=== PATIENT | female | born 1925 | race Caucasian/White ===

== ENCOUNTER 2016-08-30 16:11 | Outpatient (CLI) | payer MEDICARE, BC | END 2016-08-30 23:59 | disposition critical access hospital (66) | DX: S81.812A Laceration without foreign body, left lower leg, initial encounter (principal); S81.811A Laceration without foreign body, right lower leg, initial encounter; W01.0XXA Fall on same level from slipping, tripping and stumbling without subsequent striking against object, initial encounter; Y92.009 Unspecified place in unspecified non-institutional (private) residence as the place of occurrence of the external cause | CPT/HCPCS: A0425; A0429 ==

== ENCOUNTER 2016-08-30 16:50 | Emergency (ER) | payer MEDICARE, BC ==
[2016-08-30] MEDS ORDERED: LIDOCAINE 1%-EPI 1:100000 20 ML MDV SUBQ STA (17:11)
[2016-08-30] MEDS ORDERED: TETANUS/DIPHTHERIA/PERTUSSIS 0.5 ML SYRINGE IM ONE ×2 (17:11→17:17)
[2016-08-30] MEDS ORDERED: LIDOCAINE 1%-EPI 1:100000 20 ML MDV ONE (17:17)
== END 2016-08-30 20:07 | disposition home or self-care (01) ==
DX: S81.812A Laceration without foreign body, left lower leg, initial encounter (principal); S81.811A Laceration without foreign body, right lower leg, initial encounter; W01.198A Fall on same level from slipping, tripping and stumbling with subsequent striking against other object, initial encounter; Y92.019 Unspecified place in single-family (private) house as the place of occurrence of the external cause; Z23 Encounter for immunization; I11.0 Hypertensive heart disease with heart failure; I50.9 Heart failure, unspecified; I25.10 Atherosclerotic heart disease of native coronary artery without angina pectoris; Z95.1 Presence of aortocoronary bypass graft; I48.91 Unspecified atrial fibrillation; Z79.01 Long term (current) use of anticoagulants; E11.9 Type 2 diabetes mellitus without complications; Z79.84 Long term (current) use of oral hypoglycemic drugs; E03.9 Hypothyroidism, unspecified; Z95.0 Presence of cardiac pacemaker; Z79.82 Long term (current) use of aspirin

== ENCOUNTER 2016-09-13 07:30 | Outpatient (CLI) | payer MEDICARE, BC | END 2016-09-13 07:31 | DX: K52.9 Noninfective gastroenteritis and colitis, unspecified (principal) ==

== ENCOUNTER 2016-10-05 11:26 | Outpatient (CLI) | payer MEDICARE, BC ==
[2016-10-05 19:19] LABS: BASOPHILS % (AUTO) 0.7 %; EOSINOPHILS # (AUTO) 0.1 10^3/uL (0.0-0.7); HCT - HEMATOCRIT 26.5 % (37.0-47.0); HGB - HEMOGLOBIN 8.4 g/dL (12.0-16.0); LYMPHOCYTES # (AUTO) 0.8 10^3/uL (1.5-3.5); LYMPHOCYTES % (AUTO) 18.3 %; MEAN CORPUSCULAR HEMOGLOBIN 29.5 pg (27.0-31.0); MEAN CORPUSCULAR HGB CONC 31.5 g/dL (32.0-36.0); MEAN CORPUSCULAR VOLUME 93.6 fL (81.0-99.0); MEAN PLATELET VOLUME 8.9 fL (7.9-10.8); MONOCYTES # (AUTO) 0.3 10^3/uL (0.0-1.0); MONOCYTES % (AUTO) 7.1 %; NEUTROPHILS # (AUTO) 3.1 10^3/uL (1.5-6.6); NEUTROPHILS % (AUTO) 71.9 %; NUCLEATED RED BLOOD CELLS AUTO 0.1 /100WBC; RED BLOOD COUNT 2.83 10^6/uL (4.20-5.40); UNCORRECTED WHITE BLOOD COUNT 4.4 x10^3/uL; WHITE BLOOD COUNT 4.4 x10^3/uL (4.8-10.8)
[2016-10-05 19:31] LABS: CALCIUM 8.7 mg/dL (8.5-10.3); CREATININE 1.8 mg/dL (0.4-1.0); POTASSIUM 4.3 mmol/L (3.5-5.0); URIC ACID 12.5 mg/dL (2.6-7.2)
== END 2016-10-05 11:27 | disposition home or self-care (01) ==
LOC: LAB.WCP 11:26
PROVIDERS: ATTEND Family Medicine
DX: M10.00 Idiopathic gout, unspecified site (principal); L03.011 Cellulitis of right finger
CPT/HCPCS: 36415; 80048; 84550; 85025

== ENCOUNTER 2016-10-22 15:45 | Outpatient (CLI) | payer MEDICARE, BC | END 2016-10-22 15:46 | disposition home or self-care (01) | LOC: LAB.R 15:45 | PROVIDERS: ATTEND Physician Assistant Medical | DX: S81.819D Laceration without foreign body, unspecified lower leg, subsequent encounter (principal) | CPT/HCPCS: 87070; 87077; 87205 ==

== ENCOUNTER 2016-10-30 06:12 | Inpatient (IN) | payer MEDICARE, BC ==
[2016-10-30] MEDS ORDERED: LACTATED RINGERS 1,000 ML IV ONE ×2 (06:30→08:48)
[2016-10-30 07:08] LABS: BASOPHILS % (AUTO) 0.5 %; EOSINOPHILS # (AUTO) 0.1 10^3/uL (0.0-0.7); EOSINOPHILS % (AUTO) 1.1 %; HGB - HEMOGLOBIN 8.5 g/dL (12.0-16.0); LYMPHOCYTES # (AUTO) 0.9 10^3/uL (1.5-3.5); LYMPHOCYTES % (AUTO) 15.3 %; MEAN CORPUSCULAR HEMOGLOBIN 29.5 pg (27.0-31.0); MEAN CORPUSCULAR HGB CONC 32.6 g/dL (32.0-36.0); MEAN CORPUSCULAR VOLUME 90.5 fL (81.0-99.0); MEAN PLATELET VOLUME 8.3 fL (7.9-10.8); MONOCYTES # (AUTO) 0.4 10^3/uL (0.0-1.0); MONOCYTES % (AUTO) 6.7 %; NEUTROPHILS # (AUTO) 4.7 10^3/uL (1.5-6.6); NEUTROPHILS % (AUTO) 76.4 %; RED BLOOD COUNT 2.88 10^6/uL (4.20-5.40); RED CELL DISTRIBUTION WIDTH 17.2 % (12.0-15.0); UNCORRECTED WHITE BLOOD COUNT 6.1 x10^3/uL; WHITE BLOOD COUNT 6.1 x10^3/uL (4.8-10.8)
[2016-10-30 07:15] LABS: INR 2.5 (0.8-1.2); PT - PROTHROMBIN TIME 28.8 secs (9.9-12.6)
[2016-10-30 07:23] LABS: PARTIAL THROMBOPLASTIN TIME 37.4 secs (24.9-33.3)
[2016-10-30] MEDS ORDERED: VANCOMYCIN 1 GM VIAL ONE (07:25)
[2016-10-30] MEDS ORDERED: SODIUM CHLORIDE 0.9% 250 ML IV ONE (07:25)
[2016-10-30] MEDS ORDERED: fentaNYL 100 MCG/2 ML VIAL IVP ONE (08:00)
[2016-10-30] MEDS ORDERED: MIDAZOLAM 2 MG/2 ML VIAL IVP ONE (08:00)
[2016-10-30] MEDS ORDERED: PROPOFOL 200 MG/20 ML VIAL IVP ONE (08:00)
[2016-10-30] MEDS ORDERED: GLYCOPYRROLATE 1 MG/5 ML VIAL IVP ONE (08:00)
[2016-10-30] MEDS ORDERED: KETAMINE 500 MG/10 ML VIAL IVP ONE (08:00)
[2016-10-30] MEDS ORDERED: LIDOCAINE MPF 1%-EPI 1:200000 30 ML VIAL SUBQ ONE (08:38)
[2016-10-30] MEDS ORDERED: BUPIVACAINE 0.25% PF 30 ML VIAL SUBQ ONE (08:38)
[2016-10-30] MEDS ORDERED: SODIUM CHLORIDE FLUSH 0.9% 10 ML SYRINGE IVP PRN (08:48)
[2016-10-30] MEDS ORDERED: IBUPROFEN 400 MG TABLET PO PRN (08:48)
[2016-10-30] MEDS ORDERED: ASPIRIN EC 81 MG TABLET PO SCH ×2 (09:00→11:58)
[2016-10-30] MEDS ORDERED: BECLOMETHASONE DIPROPIONATE IH SCH (09:00)
[2016-10-30] MEDS ORDERED: SODIUM CHLORIDE 0.9% IV SCH (09:00)
[2016-10-30] MEDS ORDERED: FAMOTIDINE 20 MG TABLET PO SCH ×2 (09:00→12:00)
[2016-10-30] MEDS ORDERED: IRON POLYSACCHARIDE COMPLEX PO SCH (09:00)
[2016-10-30] MEDS ORDERED: VANCOMYCIN PER PHARMACY IV SCH (09:00)
[2016-10-30] MEDS ORDERED: fentaNYL 100 MCG/2 ML VIAL ONE (09:08)
[2016-10-30 09:48] LABS: HEMOGLOBIN A1C 0.34 g/dL
[2016-10-30] MEDS: POTASSIUM CHLORIDE 10 MEQ CAPSULE PO SCH (11:42)
[2016-10-30] MEDS: VANCOMYCIN INJ 1 GM in SODIUM CHLORIDE 0.9% 250 ML IV SCH (11:42)
[2016-10-30] MEDS: FUROSEMIDE 40 MG TABLET PO SCH ×2 (11:43→20:53)
[2016-10-30] MEDS: LEVOTHYROXINE 100 MCG TABLET PO SCH (11:44)
--- NOTE | 2016-10-30 12:01 | OPERATIVE REPORT ---
DATE OF SURGERY: 10/30/2016 00:00:00 PREOPERATIVE DIAGNOSIS: Bilateral traumatic nonhealing wounds. POSTOPERATIVE DIAGNOSIS: Bilateral traumatic nonhealing wounds. NAME OF PROCEDURE: Debridement of bilateral lower extremity wounds. SURGEON: Savannah Rosales MD ANESTHESIA: Alma Boss CRNA INDICATION FOR PROCEDURE: This is an 89-year-old female who fell, striking both of her legs, approximately 2 months ago. She was seen in the emergency department and the wounds were closed; however, they broke down and opened and have been nonhealing since. She has significant lower extremity edema contributing to the problem. When I saw her in the office, she also had a component of cellulitis and has been treated with antibiotics. FINDINGS: After obtaining informed consent from the patient, she was brought into the operating room and positioned on the operating table in the supine position, taking note of pressure points. Her lower extremities were elevated. She was then prepped and draped in the usual sterile fashion, 1 gram of vancomycin was administered. A time-out was then taken according to protocol. Local anesthetic was infiltrated to the bilateral wounds. The left extremity wound is located on the lateral aspect of her lower extremity and is noted to be approximately 5 cm in length, 4 cm in width, and 2 cm in depth. The fibrinous tissue overlying the wound bed and the necrotic tissue were debrided with a combination of sharp debridement with a #15 blade and blunt debridement with the curettage until healthy tissue was seen. Upon completion of debridement the wound was noted to be much deeper ( 4cm)involving the musculature of the leg. Due to her elevated INR secondary to coumadin Vac placement was not performed at this time, however, she will need utilization of the vac dressing post operatively and will require monitoring for persistent bleeding. The wound was then pulse irrigated with saline. Compression was then applied to obtain hemostasis. Attention was then turned to the right lower extremity. This wound was located on the medial aspect of her lower extremity and is approximately 4 cm in length , 2 cm in width, and 1 cm in depth. This wound was also debrided with a combination of sharp debridement with a #15 blade and blunt debridement with the curettage. Cultures of both wounds were obtained. This wound was also irrigated with the pulse lavage system and inspected for bleeding, and this was controlled with a combination of pressure and Bovie cautery. After adequate hemostasis was obtained, the wounds were dressed with 4 x 4's soaked in Betadine, followed by dry 4 x 4's, followed by a Kerlix wrapped from the feet upwards and Jason wrapped from the feet upwards. The patient was then brought in to recovery in stable condition. ESTIMATED BLOOD LOSS: 5 mL. COMPLICATIONS: None. SPECIMENS: Bilateral lower extremity tissue cultures. JOB #: [id number] EXT JOB #:[id number] MARGARITA
[2016-10-30] MEDS: POLYETHYLENE GLYCOL 3350 17 GM PACKET PO SCH (12:04)
[2016-10-30] MEDS: CARVEDILOL 12.5 MG TABLET PO SCH ×2 (12:07→20:53)
[2016-10-30] MEDS: FERROUS GLUCONATE 324 MG TABLET PO SCH (12:17)
[2016-10-30] MEDS: INSULIN ASPART 300 UNIT/3 ML PEN SUBQ SCH ×3 (12:17→22:23)
[2016-10-30] MEDS: glipiZIDE 5 MG TABLET PO SCH (12:17)
[2016-10-30] MEDS: SODIUM CHLORIDE FLUSH 0.9% 10 ML SYRINGE IVP SCH ×2 (14:42→20:54)
[2016-10-30] MEDS ORDERED: metFORMIN 500 MG TABLET PO SCH (17:00)
[2016-10-30] MEDS: ATORVASTATIN 40 MG TABLET PO SCH (20:53)
[2016-10-30] MEDS: LOSARTAN 50 MG TABLET PO SCH (20:54)
[2016-10-30] MEDS: WARFARIN 1 MG TABLET PO SCH (21:03)
[2016-10-30] MEDS: ACETAMINOPHEN 325 MG TABLET PO PRN (22:22)
[2016-10-31] MEDS: HYDROcod/ACETAM 5/325 MG TABLET PO PRN ×2 (02:11→08:47)
[2016-10-31] MEDS: ACETAMINOPHEN 325 MG TABLET PO PRN ×3 (06:05→23:51)
[2016-10-31] MEDS: LEVOTHYROXINE 100 MCG TABLET PO SCH (06:05)
[2016-10-31] MEDS: SODIUM CHLORIDE FLUSH 0.9% 10 ML SYRINGE IVP SCH ×3 (06:05→12:50)
[2016-10-31 06:19] LABS: BASOPHILS # (AUTO) 0.1 10^3/uL (0.0-0.1); BASOPHILS % (AUTO) 0.9 %; EOSINOPHILS # (AUTO) 0.1 10^3/uL (0.0-0.7); EOSINOPHILS % (AUTO) 2.4 %; HCT - HEMATOCRIT 24.6 % (37.0-47.0); HGB - HEMOGLOBIN 7.8 g/dL (12.0-16.0); LYMPHOCYTES # (AUTO) 1.4 10^3/uL (1.5-3.5); LYMPHOCYTES % (AUTO) 25.1 %; MEAN CORPUSCULAR HEMOGLOBIN 28.5 pg (27.0-31.0); MEAN CORPUSCULAR HGB CONC 31.8 g/dL (32.0-36.0); MEAN CORPUSCULAR VOLUME 89.8 fL (81.0-99.0); MEAN PLATELET VOLUME 8.2 fL (7.9-10.8); MONOCYTES # (AUTO) 0.4 10^3/uL (0.0-1.0); NEUTROPHILS # (AUTO) 3.5 10^3/uL (1.5-6.6); NEUTROPHILS % (AUTO) 63.6 %; RED BLOOD COUNT 2.74 10^6/uL (4.20-5.40); RED CELL DISTRIBUTION WIDTH 16.7 % (12.0-15.0); UNCORRECTED WHITE BLOOD COUNT 5.5 x10^3/uL; WHITE BLOOD COUNT 5.5 x10^3/uL (4.8-10.8)
[2016-10-31 06:28] LABS: CALCIUM 8.3 mg/dL (8.5-10.3); CREATININE 2.3 mg/dL (0.4-1.0); POTASSIUM 4.4 mmol/L (3.5-5.0)
[2016-10-31] MEDS: glipiZIDE 5 MG TABLET PO SCH (08:17)
[2016-10-31] MEDS: FUROSEMIDE 40 MG TABLET PO SCH ×2 (08:18→21:29)
[2016-10-31] MEDS: FAMOTIDINE 20 MG TABLET PO SCH (08:18)
[2016-10-31] MEDS: FERROUS GLUCONATE 324 MG TABLET PO SCH (08:18)
[2016-10-31] MEDS: POLYETHYLENE GLYCOL 3350 17 GM PACKET PO SCH (08:19)
[2016-10-31] MEDS: POTASSIUM CHLORIDE 10 MEQ CAPSULE PO SCH (08:19)
[2016-10-31] MEDS: CARVEDILOL 12.5 MG TABLET PO SCH ×2 (08:19→21:30)
[2016-10-31] MEDS: INSULIN ASPART 300 UNIT/3 ML PEN SUBQ SCH ×4 (08:20→21:30)
[2016-10-31] MEDS: VANCOMYCIN INJ 1 GM in SODIUM CHLORIDE 0.9% 250 ML IV SCH (09:41)
[2016-10-31] MEDS ORDERED: ONDANSETRON 4 MG/2 ML VIAL IVP PRN (11:58)
--- NOTE | 2016-10-31 12:44 | PROVIDER PROGRESS NOTE ---
Subjective - General Admit Date: 10/30/16 Procedure Date: 10/30/16 Post Op Days: 1 Procedure Performed: debridement of lower extremity wounds - Review of Systems Wound/Incisions: positive: No drainage Objective - Patient Data Reviewed Vital Signs: Yes Vital Signs: Vital Signs x48h Temp Pulse Resp BP Pulse Ox 10/31/16 08:15 36.2 C L 63 18 128/64 100 Weight: Weight 10/29/16 10/30/16 10/31/16 23:59 23:59 23:59 Weight (kg) 78 kg Intake & Output: Intake and Output Totals x24h 10/29/16 10/30/16 10/31/16 23:59 23:59 23:59 Intake Total 1575 200 Balance 1575 200 - Lab Results Lab Results: 10/31/16 05:55 10/31/16 05:55 Other Lab Results: Lab Results x24hrs 10/31/16 10/31/16 10/31/16 Range/Units 11:38 09:40 07:47 WBC (4.8-10.8) x10^3/uL RBC (4.20-5.40) 10^6/uL Hgb (12.0-16.0) g/dL Hct (37.0-47.0) % MCV (81.0-99.0) fL MCH (27.0-31.0) pg MCHC (32.0-36.0) g/dL RDW (12.0-15.0) % Plt Count (130-450) 10^3/uL MPV (7.9-10.8) fL Neut # (1.5-6.6) 10^3/uL Lymph # (1.5-3.5) 10^3/uL [place] # (0.0-1.0) 10^3/uL Eos # (0.0-0.7) 10^3/uL Baso # (0.0-0.1) 10^3/uL Absolute Nucleated RBC x10^3/uL Nucleated RBCs /100WBC Sodium (135-145) mmol/L Potassium (3.5-5.0) mmol/L Chloride (101-111) mmol/L Carbon Dioxide (21-32) mmol/L Anion Gap (6-13) BUN (6-20) mg/dL Creatinine (0.4-1.0) mg/dL Estimated GFR (MDRD) (>89) Glucose (70-100) mg/dL POC Whole Bld Glucose 143 H 90 (70 - 100) mg/dL Calcium (8.5-10.3) mg/dL Last Dose Date 10/30/16 Last Dose Time 1142 Vancomycin Trough 17.9 H (5.0-15.0) ug/mL 10/31/16 10/31/16 10/30/16 Range/Units 05:55 05:55 21:17 WBC 5.5 (4.8-10.8) x10^3/uL RBC 2.74 L (4.20-5.40) 10^6/uL Hgb 7.8 L (12.0-16.0) g/dL Hct 24.6 L (37.0-47.0) % MCV 89.8 (81.0-99.0) fL MCH 28.5 (27.0-31.0) pg MCHC 31.8 L (32.0-36.0) g/dL RDW 16.7 H (12.0-15.0) % Plt Count 144 (130-450) 10^3/uL MPV 8.2 (7.9-10.8) fL Neut # 3.5 (1.5-6.6) 10^3/uL Lymph # 1.4 L (1.5-3.5) 10^3/uL Will # 0.4 (0.0-1.0) 10^3/uL Eos # 0.1 (0.0-0.7) 10^3/uL Baso # 0.1 (0.0-0.1) 10^3/uL Absolute Nucleated RBC 0.00 x10^3/uL Nucleated RBCs 0.0 /100WBC Sodium 142 (135-145) mmol/L Potassium 4.4 (3.5-5.0) mmol/L Chloride 109 (101-111) mmol/L Carbon Dioxide 25 (21-32) mmol/L Anion Gap 8.0 (6-13) BUN 57 H (6-20) mg/dL Creatinine 2.3 H (0.4-1.0) mg/dL Estimated GFR (MDRD) 20 L (>89) Glucose 106 H (70-100) mg/dL POC Whole Bld Glucose 193 H (70 - 100) mg/dL Calcium 8.3 L (8.5-10.3) mg/dL Last Dose Date Last Dose Time Vancomycin Trough (5.0-15.0) ug/mL 10/30/16 Range/Units 16:44 WBC (4.8-10.8) x10^3/uL RBC (4.20-5.40) 10^6/uL Hgb (12.0-16.0) g/dL Hct (37.0-47.0) % MCV (81.0-99.0) fL MCH (27.0-31.0) pg MCHC (32.0-36.0) g/dL RDW (12.0-15.0) % Plt Count (130-450) 10^3/uL MPV (7.9-10.8) fL Neut # (1.5-6.6) 10^3/uL Lymph # (1.5-3.5) 10^3/uL Will # (0.0-1.0) 10^3/uL Eos # (0.0-0.7) 10^3/uL Baso # (0.0-0.1) 10^3/uL Absolute Nucleated RBC x10^3/uL Nucleated RBCs /100WBC Sodium (135-145) mmol/L Potassium (3.5-5.0) mmol/L Chloride (101-111) mmol/L Carbon Dioxide (21-32) mmol/L Anion Gap (6-13) BUN (6-20) mg/dL Creatinine (0.4-1.0) mg/dL Estimated GFR (MDRD) (>89) Glucose (70-100) mg/dL POC Whole Bld Glucose 138 H (70 - 100) mg/dL Calcium (8.5-10.3) mg/dL Last Dose Date Last Dose Time Vancomycin Trough (5.0-15.0) ug/mL - Current Medications Current Medications: Current Medications Generic Name Dose Route Start Last Admin Trade Name Freq PRN Reason Stop Dose Admin Acetaminophen 325 - 650 mg 10/30/16 21:38 10/31/16 06:05 Tylenol PO 650 mg Q6HR PRN Administration Pain or Fever > 38C (100.4F) Acetaminophen/Hydrocodone Bitart 1 tab 10/30/16 08:48 10/31/16 08:47 [place] 5/325 PO 1 tab Q4HR PRN Administration Pain 5 to 7 Atorvastatin Calcium 80 mg 10/30/16 21:00 10/30/16 20:53 Lipitor PO 80 mg QPM RAVINDER Administration Carvedilol 37.5 mg 10/30/16 12:00 10/31/16 08:19 Coreg PO 37.5 mg DAILY@0900 RAVINDER Administration Carvedilol 25 mg 10/30/16 21:00 10/30/16 20:53 Coreg PO 25 mg QPM RAVINDER Administration Famotidine 20 mg 10/31/16 09:00 10/31/16 08:18 Pepcid PO 20 mg DAILY RAVINDER Administration Ferrous Gluconate 324 mg 10/30/16 12:00 10/31/16 08:18 Fergon PO 324 mg DAILYWM RAVINDER Administration Furosemide 80 mg 10/30/16 11:00 10/31/16 08:18 Lasix PO 80 mg BID RAVINDER Administration Glipizide 5 mg 10/30/16 09:00 10/31/16 08:17 Glucotrol PO 5 mg DAILY RAVINDER Administration Vancomycin HCl 1 gm/ Sodium 250 mls @ 167 mls/hr 10/30/16 10:00 10/31/16 09:41 Chloride IV 167 mls/hr Q24H RAVINDER Administration Insulin Aspart 1 - 5 unit 10/30/16 12:00 10/31/16 11:41 Novolog SUBQ 1 unit 0800,1200,1700,2100 RAVINDER Administration Protocol Levothyroxine Sodium 100 mcg 10/30/16 11:00 10/31/16 06:05 Synthroid PO 100 mcg QDAC RAVINDER Administration Losartan Potassium 25 mg 10/30/16 21:00 10/30/16 20:54 Cozaar PO 25 mg QPM RAVINDER Administration Polyethylene Glycol 17 gm 10/30/16 09:00 10/31/16 08:19 Miralax PO Not Given DAILY RAVINDER Potassium Chloride 10 meq 10/30/16 09:00 10/31/16 08:19 Micro-K PO 10 meq DAILY RAVINDER Administration Sodium Chloride 10 ml 10/30/16 14:00 10/31/16 09:47 Normal Saline Flush 0.9% IVP 10 ml Q8HR RAVINDER Administration Warfarin Sodium 2 mg 10/30/16 21:00 10/30/16 21:03 Coumadin PO 2 mg SuMoTuThFr@2100 [facility] Administration - Physical Exam Wound/Incisions: positive: Dressing dry and intact General Appearance: positive: No acute distress Respiratory: positive: No respiratory distress Cardiovascular: positive: Irregularly irregular Abdomen: positive: Non-tender Extremities: positive: Pedal edema Impression/Plan - Problem List Problem List: s/p debridement of bilateral lower extremities - cultures growing gram positive cocci and rods. Will await final results. Con' t vancomycin - Vac placement today - PTOT consult - social work consult for placement into SNF which can accommodate vac dressing
[2016-10-31] MEDS ORDERED: WARFARIN 1 MG TABLET PO SCH (21:00)
[2016-10-31] MEDS: ATORVASTATIN 40 MG TABLET PO SCH (21:29)
[2016-10-31] MEDS: LOSARTAN 50 MG TABLET PO SCH (21:30)
[2016-11-01] MEDS: ACETAMINOPHEN 325 MG TABLET PO PRN ×3 (06:07→23:46)
[2016-11-01] MEDS: SODIUM CHLORIDE FLUSH 0.9% 10 ML SYRINGE IVP SCH ×3 (06:08→21:20)
[2016-11-01] MEDS: LEVOTHYROXINE 100 MCG TABLET PO SCH (06:09)
[2016-11-01] MEDS: POLYETHYLENE GLYCOL 3350 17 GM PACKET PO SCH (08:17)
[2016-11-01] MEDS: FUROSEMIDE 40 MG TABLET PO SCH ×2 (08:18→21:19)
[2016-11-01] MEDS: CARVEDILOL 12.5 MG TABLET PO SCH ×2 (08:18→21:19)
[2016-11-01] MEDS: FAMOTIDINE 20 MG TABLET PO SCH (08:19)
[2016-11-01] MEDS: POTASSIUM CHLORIDE 10 MEQ CAPSULE PO SCH (08:19)
[2016-11-01] MEDS: FERROUS GLUCONATE 324 MG TABLET PO SCH (08:19)
[2016-11-01] MEDS: glipiZIDE 5 MG TABLET PO SCH (08:19)
[2016-11-01] MEDS: INSULIN ASPART 300 UNIT/3 ML PEN SUBQ SCH ×5 (08:21→20:46)
[2016-11-01] MEDS ORDERED: VANCOMYCIN INJ 1 GM in SODIUM CHLORIDE 0.9% 250 ML IV SCH (10:00)
--- NOTE | 2016-11-01 10:51 | PROVIDER PROGRESS NOTE ---
Subjective - General Admit Date: 10/31/16 Procedure Date: 10/30/16 Post Op Days: 2 Procedure Performed: debridement of lower extremity wounds - Review of Systems Wound/Incisions: positive: Dressing dry and intact, Erythema improving General: positive: No symptoms. negative: Fever Gastrointestinal: positive: Nausea Musculoskeletal: positive: Leg pain Psychiatric: positive: No symptoms - Other Other Information/Narrative: slight increase in creatinine today. Gram stain positive for gram positive cocci and rods. Afebrile Objective - Patient Data Reviewed Vital Signs: Yes Vital Signs: Vital Signs x48h Temp Pulse Resp BP Pulse Ox 11/01/16 07:55 36.2 C L 66 16 142/77 H 99 11/01/16 05:00 36.3 C L 87 18 127/71 95 Weight: Weight 10/30/16 10/31/16 11/01/16 23:59 23:59 23:59 Weight (kg) 78 kg Intake & Output: Intake and Output Totals x24h 10/30/16 10/31/16 11/01/16 23:59 23:59 23:59 Intake Total 1575 825 480 Output Total 400 Balance 1575 425 480 - Lab Results Lab Results: 10/31/16 05:55 10/31/16 05:55 Other Lab Results: Lab Results x24hrs 11/01/16 11/01/16 10/31/16 Range/Units 08:04 07:21 20:24 POC Whole Bld Glucose 96 66 L 114 H (70 - 100) mg/dL 10/31/16 10/31/16 Range/Units 16:49 11:38 POC Whole Bld Glucose 106 H 143 H (70 - 100) mg/dL - Current Medications Current Medications: Current Medications Generic Name Dose Route Start Last Admin Trade Name Freq PRN Reason Stop Dose Admin Acetaminophen 325 - 650 mg 10/30/16 21:38 11/01/16 06:07 Tylenol PO 650 mg Q6HR PRN Administration Pain or Fever > 38C (100.4F) Acetaminophen/Hydrocodone Bitart 1 tab 10/30/16 08:48 10/31/16 08:47 [place] 5/325 PO 1 tab Q4HR PRN Administration Pain 5 to 7 Atorvastatin Calcium 80 mg 10/30/16 21:00 10/31/16 21:29 Lipitor PO 80 mg QPM RAVINDER Administration Carvedilol 37.5 mg 10/30/16 12:00 11/01/16 08:18 Coreg PO 37.5 mg DAILY@0900 RAVINDER Administration Carvedilol 25 mg 10/30/16 21:00 10/31/16 21:30 Coreg PO 25 mg QPM RAVINDER Administration Famotidine 20 mg 10/31/16 09:00 11/01/16 08:19 Pepcid PO 20 mg DAILY RAVINDER Administration Ferrous Gluconate 324 mg 10/30/16 12:00 11/01/16 08:19 Fergon PO 324 mg DAILYWM RAVINDER Administration Furosemide 80 mg 10/30/16 11:00 11/01/16 08:18 Lasix PO 80 mg BID RAVINDER Administration Glipizide 5 mg 10/30/16 09:00 11/01/16 08:19 Glucotrol PO 5 mg DAILY RAVINDER Administration Insulin Aspart 1 - 5 unit 10/30/16 12:00 11/01/16 08:21 Novolog SUBQ Not Given 0800,1200,1700,2100 [facility] Protocol Levothyroxine Sodium 100 mcg 10/30/16 11:00 11/01/16 06:09 Synthroid PO 100 mcg QDAC RAVINDER Administration Losartan Potassium 25 mg 10/30/16 21:00 10/31/16 21:30 Cozaar PO 25 mg QPM RAVINDER Administration Ondansetron HCl 4 mg 10/31/16 11:58 10/31/16 12:50 Zofran Inj IVP 4 mg Q6HR PRN Administration Nausea / Vomiting Polyethylene Glycol 17 gm 10/30/16 09:00 11/01/16 08:17 Miralax PO 17 gm DAILY RAVINDER Administration Potassium Chloride 10 meq 10/30/16 09:00 11/01/16 08:19 Micro-K PO 10 meq DAILY RAVINDER Administration Sodium Chloride 10 ml 10/30/16 14:00 11/01/16 10:04 Normal Saline Flush 0.9% IVP 10 ml Q8HR RAVINDER Administration Warfarin Sodium 2 mg 10/30/16 21:00 10/30/16 21:03 Coumadin PO 2 mg SuMoTuThFr@2100 RAVINDER Administration Warfarin Sodium 4 mg 10/31/16 21:00 10/31/16 21:29 Coumadin PO 4 mg WeSa@2100 RAVINDER Administration - Physical Exam Wound/Incisions: positive: Dressing dry and intact, Erythema improving Respiratory: positive: No respiratory distress, Breath sounds nml Cardiovascular: positive: Irregularly irregular Abdomen: positive: Non-tender, Nml bowel sounds Extremities: positive: Other (vac dressings in place bilaterally. Surrounding skin appears viable with improvement in erythema.) Neurologic/Psychiatric: positive: Oriented x3 Impression/Plan - Problem List Problem List: s/p wound debridement for chronic nonhealing lower extremity infected wounds. Acute on chronic renal insufficiency. Atrail fibrillation on coumadin - Awaiting speciation of cultures to determine appropriate antibiotic therapy. Vanco discontinued for increase in creatine and exchanged for Zyvox. - Will start low dose IV hydration for acute on chronic renal insufficiency. - No evidence of bleeding since vac dressing has been placed. Coumadin has been resumed - Planning for SNF versus home nursing care for dressing changes. - PTOT to assess patients mobility with vac dressings on lower extremities as this will hinder her mobility to some degree.
[2016-11-01] MEDS ORDERED: LINEZOLID 600 MG/300 ML 300 ML IV SCH (11:00)
[2016-11-01 12:29] LABS: HEMOGLOBIN A1C 0.42 g/dL
[2016-11-01] MEDS ORDERED: ERTAPENEM IV SCH (17:00)
[2016-11-01] MEDS ORDERED: SODIUM CHLORIDE 0.9% IV SCH (17:00)
[2016-11-01] MEDS ORDERED: ASPIRIN EC 81 MG TABLET PO SCH (21:00)
[2016-11-01] MEDS: WARFARIN 1 MG TABLET PO SCH (21:19)
[2016-11-01] MEDS: ATORVASTATIN 40 MG TABLET PO SCH (21:19)
[2016-11-01] MEDS: LOSARTAN 50 MG TABLET PO SCH (21:20)
[2016-11-02] MEDS: SODIUM CHLORIDE FLUSH 0.9% 10 ML SYRINGE IVP SCH ×3 (05:58→21:17)
[2016-11-02] MEDS: LEVOTHYROXINE 100 MCG TABLET PO SCH (06:00)
[2016-11-02 06:10] LABS: CALCIUM 8.3 mg/dL (8.5-10.3); CREATININE 2.3 mg/dL (0.4-1.0); POTASSIUM 4.4 mmol/L (3.5-5.0)
[2016-11-02 06:18] LABS: BASOPHILS % (AUTO) 0.6 %; EOSINOPHILS # (AUTO) 0.2 10^3/uL (0.0-0.7); EOSINOPHILS % (AUTO) 3.3 %; HCT - HEMATOCRIT 23.5 % (37.0-47.0); HGB - HEMOGLOBIN 7.5 g/dL (12.0-16.0); LYMPHOCYTES # (AUTO) 1.5 10^3/uL (1.5-3.5); LYMPHOCYTES % (AUTO) 29.5 %; MEAN CORPUSCULAR HGB CONC 32.1 g/dL (32.0-36.0); MEAN CORPUSCULAR VOLUME 90.2 fL (81.0-99.0); MEAN PLATELET VOLUME 8.4 fL (7.9-10.8); MONOCYTES # (AUTO) 0.4 10^3/uL (0.0-1.0); MONOCYTES % (AUTO) 7.2 %; NEUTROPHILS % (AUTO) 59.4 %; RED CELL DISTRIBUTION WIDTH 16.8 % (12.0-15.0)
[2016-11-02] MEDS: INSULIN ASPART 300 UNIT/3 ML PEN SUBQ SCH ×4 (08:30→21:16)
[2016-11-02] MEDS: FERROUS GLUCONATE 324 MG TABLET PO SCH (08:30)
[2016-11-02] MEDS: POTASSIUM CHLORIDE 10 MEQ CAPSULE PO SCH (08:31)
[2016-11-02] MEDS: FAMOTIDINE 20 MG TABLET PO SCH (08:31)
[2016-11-02] MEDS: DOCUSATE SODIUM 250 MG CAPSULE PO SCH (08:31)
[2016-11-02] MEDS: CARVEDILOL 12.5 MG TABLET PO SCH ×2 (08:31→21:16)
[2016-11-02] MEDS: FUROSEMIDE 40 MG TABLET PO SCH ×2 (08:31→21:16)
[2016-11-02] MEDS: SENNA 8.6 MG TABLET PO SCH (08:32)
[2016-11-02] MEDS: POLYETHYLENE GLYCOL 3350 17 GM PACKET PO SCH (08:32)
[2016-11-02] MEDS: ACETAMINOPHEN 325 MG TABLET PO PRN ×2 (09:08→21:08)
[2016-11-02 09:20] LABS: EOSINOPHILS # (AUTO) 0.2 10^3/uL (0.0-0.7); EOSINOPHILS % (AUTO) 3.4 %; HCT - HEMATOCRIT 25.2 % (37.0-47.0); LYMPHOCYTES # (AUTO) 1.4 10^3/uL (1.5-3.5); LYMPHOCYTES % (AUTO) 27.3 %; MEAN CORPUSCULAR HEMOGLOBIN 28.5 pg (27.0-31.0); MEAN CORPUSCULAR HGB CONC 31.7 g/dL (32.0-36.0); MEAN PLATELET VOLUME 8.5 fL (7.9-10.8); MONOCYTES # (AUTO) 0.3 10^3/uL (0.0-1.0); MONOCYTES % (AUTO) 6.4 %; NEUTROPHILS # (AUTO) 3.1 10^3/uL (1.5-6.6); NEUTROPHILS % (AUTO) 61.9 %; RED CELL DISTRIBUTION WIDTH 16.8 % (12.0-15.0); UNCORRECTED WHITE BLOOD COUNT 5.1 x10^3/uL; WHITE BLOOD COUNT 5.1 x10^3/uL (4.8-10.8)
[2016-11-02 09:29] LABS: INR 2.6 (0.8-1.2); PT - PROTHROMBIN TIME 29.8 secs (9.9-12.6)
[2016-11-02 09:30] LABS: CALCIUM 8.4 mg/dL (8.5-10.3); CREATININE 2.3 mg/dL (0.4-1.0)
[2016-11-02 09:31] LABS: POTASSIUM 5.2 mmol/L (3.5-5.0)
--- NOTE | 2016-11-02 13:10 | Discharge Plan ---
Discharge Plan Disposition: Home Health Service Condition: Good Diet: Regular Activity Restrictions: Activity as Tolerated Shower Restrictions: Yes (spnge bath only while vac dressing in place) Driving Restrictions: No Assistance Devices: Walker Weight Bearing: Full Weight Additional Instructions or Follow Up instructions: Wound vac to be changed by nursing Saturday, Saturday, Saturday. Black sponge to wound bed followed by plastic adhesive. Keep legs elevated unless ambulating. Continue Bactrim BID for 10 days. Stop glipizide and metformin and follow up with your PCP within one week of discharge for diabetes management. No Smoking: If you smoke, Please STOP! Call for help. Follow-up with: Hermilo Hope MD [Primary Care Provider] - 1 Week (for management of diabetes now off orals) MARTITA MCCLAIN MD [Provider Admit Priv/Credential] - 1 Week
--- NOTE | 2016-11-02 13:16 | PROVIDER PROGRESS NOTE ---
Subjective - General Admit Date: 10/31/16 Procedure Date: 10/30/16 Post Op Days: 3 Procedure Performed: debridement of lower extremity wounds - Review of Systems Wound/Incisions: positive: Dressing dry and intact, Erythema improving General: positive: No symptoms. negative: Fever Musculoskeletal: positive: Leg pain Psychiatric: positive: No symptoms - Other Other Information/Narrative: wound cultures have come back as serratia and klebsiella sensitive to Bactrim. She remains afebrile. H/H is stable. Kidney function is stable. Objective - Patient Data Reviewed Vital Signs: Yes Vital Signs: Vital Signs x48h Temp Pulse Resp BP Pulse Ox 11/02/16 08:48 36.1 C L 65 18 137/80 H 100 Intake & Output: Intake and Output Totals x24h 10/31/16 11/01/16 11/02/16 23:59 23:59 23:59 Intake Total 825 1261 340 Output Total 400 1 Balance 425 1260 340 - Lab Results Lab Results: 11/02/16 08:50 11/02/16 08:50 Other Lab Results: Lab Results x24hrs 11/02/16 11/02/16 11/02/16 Range/Units 11:14 08:50 08:50 WBC (4.8-10.8) x10^3/uL RBC (4.20-5.40) 10^6/uL Hgb (12.0-16.0) g/dL Hct (37.0-47.0) % MCV (81.0-99.0) fL MCH (27.0-31.0) pg MCHC (32.0-36.0) g/dL RDW (12.0-15.0) % Plt Count (130-450) 10^3/uL MPV (7.9-10.8) fL Neut # (1.5-6.6) 10^3/uL Lymph # (1.5-3.5) 10^3/uL [place] # (0.0-1.0) 10^3/uL Eos # (0.0-0.7) 10^3/uL Baso # (0.0-0.1) 10^3/uL Absolute Nucleated RBC x10^3/uL Nucleated RBCs /100WBC PT 29.8 H (9.9-12.6) secs INR 2.6 H (0.8-1.2) Sodium 140 (135-145) mmol/L Potassium 5.2 H (3.5-5.0) mmol/L Chloride 104 (101-111) mmol/L Carbon Dioxide 27 (21-32) mmol/L Anion Gap 9.0 (6-13) BUN 58 H (6-20) mg/dL Creatinine 2.3 H (0.4-1.0) mg/dL Estimated GFR (MDRD) 20 L (>89) Glucose 147 H (70-100) mg/dL POC Whole Bld Glucose 189 H (70 - 100) mg/dL Calcium 8.4 L (8.5-10.3) mg/dL Blood Type Antibody Screen 11/02/16 11/02/16 11/02/16 Range/Units 08:50 07:42 05:22 WBC 5.1 (4.8-10.8) x10^3/uL RBC 2.80 L (4.20-5.40) 10^6/uL Hgb 8.0 L (12.0-16.0) g/dL Hct 25.2 L (37.0-47.0) % MCV 90.0 (81.0-99.0) fL MCH 28.5 (27.0-31.0) pg MCHC 31.7 L (32.0-36.0) g/dL RDW 16.8 H (12.0-15.0) % Plt Count 154 (130-450) 10^3/uL MPV 8.5 (7.9-10.8) fL Neut # 3.1 (1.5-6.6) 10^3/uL Lymph # 1.4 L (1.5-3.5) 10^3/uL [place] # 0.3 (0.0-1.0) 10^3/uL Eos # 0.2 (0.0-0.7) 10^3/uL Baso # 0.0 (0.0-0.1) 10^3/uL Absolute Nucleated RBC 0.00 x10^3/uL Nucleated RBCs 0.0 /100WBC PT (9.9-12.6) secs INR (0.8-1.2) Sodium (135-145) mmol/L Potassium (3.5-5.0) mmol/L Chloride (101-111) mmol/L Carbon Dioxide (21-32) mmol/L Anion Gap (6-13) BUN (6-20) mg/dL Creatinine (0.4-1.0) mg/dL Estimated GFR (MDRD) (>89) Glucose (70-100) mg/dL POC Whole Bld Glucose 77 (70 - 100) mg/dL Calcium (8.5-10.3) mg/dL Blood Type O POSITIVE Antibody Screen NEGATIVE 11/02/16 11/02/16 11/01/16 Range/Units 05:22 05:22 20:27 WBC 5.0 (4.8-10.8) x10^3/uL RBC 2.60 L (4.20-5.40) 10^6/uL Hgb 7.5 L (12.0-16.0) g/dL Hct 23.5 L (37.0-47.0) % MCV 90.2 (81.0-99.0) fL MCH 29.0 (27.0-31.0) pg MCHC 32.1 (32.0-36.0) g/dL RDW 16.8 H (12.0-15.0) % Plt Count 140 (130-450) 10^3/uL MPV 8.4 (7.9-10.8) fL Neut # 3.0 (1.5-6.6) 10^3/uL Lymph # 1.5 (1.5-3.5) 10^3/uL [place] # 0.4 (0.0-1.0) 10^3/uL Eos # 0.2 (0.0-0.7) 10^3/uL Baso # 0.0 (0.0-0.1) 10^3/uL Absolute Nucleated RBC 0.00 x10^3/uL Nucleated RBCs 0.0 /100WBC PT (9.9-12.6) secs INR (0.8-1.2) Sodium 142 (135-145) mmol/L Potassium 4.4 (3.5-5.0) mmol/L Chloride 106 (101-111) mmol/L Carbon Dioxide 27 (21-32) mmol/L Anion Gap 9.0 (6-13) BUN 61 H (6-20) mg/dL Creatinine 2.3 H (0.4-1.0) mg/dL Estimated GFR (MDRD) 20 L (>89) Glucose 81 (70-100) mg/dL POC Whole Bld Glucose 123 H (70 - 100) mg/dL Calcium 8.3 L (8.5-10.3) mg/dL Blood Type Antibody Screen 11/01/16 Range/Units 16:43 WBC (4.8-10.8) x10^3/uL RBC (4.20-5.40) 10^6/uL Hgb (12.0-16.0) g/dL Hct (37.0-47.0) % MCV (81.0-99.0) fL MCH (27.0-31.0) pg MCHC (32.0-36.0) g/dL RDW (12.0-15.0) % Plt Count (130-450) 10^3/uL MPV (7.9-10.8) fL Neut # (1.5-6.6) 10^3/uL Lymph # (1.5-3.5) 10^3/uL [place] # (0.0-1.0) 10^3/uL Eos # (0.0-0.7) 10^3/uL Baso # (0.0-0.1) 10^3/uL Absolute Nucleated RBC x10^3/uL Nucleated RBCs /100WBC PT (9.9-12.6) secs INR (0.8-1.2) Sodium (135-145) mmol/L Potassium (3.5-5.0) mmol/L Chloride (101-111) mmol/L Carbon Dioxide (21-32) mmol/L Anion Gap (6-13) BUN (6-20) mg/dL Creatinine (0.4-1.0) mg/dL Estimated GFR (MDRD) (>89) Glucose (70-100) mg/dL POC Whole Bld Glucose 92 (70 - 100) mg/dL Calcium (8.5-10.3) mg/dL Blood Type Antibody Screen - Current Medications Current Medications: Current Medications Generic Name Dose Route Start Last Admin Trade Name Freq PRN Reason Stop Dose Admin Acetaminophen 325 - 650 mg 10/30/16 21:38 11/02/16 09:08 Tylenol PO 650 mg Q6HR PRN Administration Pain or Fever > 38C (100.4F) Acetaminophen/Hydrocodone Bitart 1 tab 10/30/16 08:48 10/31/16 08:47 [place] 5/325 PO 1 tab Q4HR PRN Administration Pain 5 to 7 Aspirin 81 mg 11/01/16 21:00 11/01/16 21:19 Ecotrin PO 81 mg SuTuThSa@2100 RAVINDER Administration Atorvastatin Calcium 80 mg 10/30/16 21:00 11/01/16 21:19 Lipitor PO 80 mg QPM RAVINDER Administration Carvedilol 37.5 mg 10/30/16 12:00 11/02/16 08:31 Coreg PO 37.5 mg DAILY@0900 RAVINDER Administration Carvedilol 25 mg 10/30/16 21:00 11/01/16 21:19 Coreg PO 25 mg QPM RAVINDER Administration Docusate Sodium 250 - 500 mg 11/02/16 09:00 11/02/16 08:31 Colace 250mg Capsule PO Not Given DAILY RAVINDER Famotidine 20 mg 10/31/16 09:00 11/02/16 08:31 Pepcid PO 20 mg DAILY RAVINDER Administration Ferrous Gluconate 324 mg 10/30/16 12:00 11/02/16 08:30 Fergon PO 324 mg DAILYWM RAVINDER Administration Furosemide 80 mg 10/30/16 11:00 11/02/16 08:31 Lasix PO 80 mg BID RAVINDER Administration Ertapenem 0.5 gm/ Sodium 100 mls @ 200 mls/hr 11/01/16 17:00 11/01/16 17:15 Chloride IV 200 mls/hr Q24H RAVINDER Administration Insulin Aspart 2 - 10 unit 11/01/16 12:00 11/02/16 11:21 Novolog SUBQ 4 unit 0800,1200,1700,2100 RAVINDER Administration Protocol Levothyroxine Sodium 100 mcg 10/30/16 11:00 11/02/16 06:00 Synthroid PO 100 mcg QDAC RAVINDER Administration Losartan Potassium 25 mg 10/30/16 21:00 11/01/16 21:20 Cozaar PO 25 mg QPM RAVINDER Administration Ondansetron HCl 4 mg 10/31/16 11:58 10/31/16 12:50 Zofran Inj IVP 4 mg Q6HR PRN Administration Nausea / Vomiting Polyethylene Glycol 17 gm 10/30/16 09:00 11/02/16 08:32 Miralax PO Not Given DAILY [facility] Potassium Chloride 10 meq 10/30/16 09:00 11/02/16 08:31 Micro-K PO 10 meq DAILY RAVINDER Administration Senna 8.6 - 17.2 mg 11/02/16 09:00 11/02/16 08:32 Senokot PO Not Given DAILY [facility] Sodium Chloride 10 ml 10/30/16 14:00 11/02/16 05:58 Normal Saline Flush 0.9% IVP 10 ml Q8HR RAVINDER Administration Warfarin Sodium 2 mg 10/30/16 21:00 11/01/16 21:19 Coumadin PO 2 mg SuMoTuThFr@2100 RAVINDER Administration Warfarin Sodium 4 mg 10/31/16 21:00 10/31/16 21:29 Coumadin PO 4 mg WeSa@2100 RAVINDER Administration - Physical Exam Wound/Incisions: positive: Dressing dry and intact, No drainage General Appearance: positive: No acute distress Respiratory: positive: No respiratory distress Cardiovascular: positive: Irregularly irregular Extremities: positive: Full ROM, Pedal edema, Other (vac dressings in place with good seal. Minimal drainage in cannister. Pedal edema improved) Neurologic/Psychiatric: positive: Oriented x3 Impression/Plan - Problem List Problem List: s/p debridement of bilateral lower extremity wounds POD 3 - IV antibiotics transitioned to oral based on sensitivities - HH stable and slightly improved today - renal function stable from yesterday. - With the presence of the child welfare social worker both yesterday and today I have informed the patient that she is ready for discharge to home with home health or to a [place] [facility] facility. She states that she is not ready to leave the hospital. We have informed her that she will be responsible for her medical bill as she has no outstanding medical issues that require her to stay in the hospital. She understands but continues to refuse discharge.
[2016-11-02] MEDS: SULFAMETH/TRIMETH DS 800/160 MG TABLET PO SCH ×2 (13:35→21:14)
[2016-11-02] MEDS: ATORVASTATIN 40 MG TABLET PO SCH (21:14)
[2016-11-02] MEDS: LOSARTAN 50 MG TABLET PO SCH (21:15)
[2016-11-02] MEDS: WARFARIN 1 MG TABLET PO SCH (21:16)
[2016-11-03] MEDS: LEVOTHYROXINE 100 MCG TABLET PO SCH (06:32)
[2016-11-03] MEDS: SODIUM CHLORIDE FLUSH 0.9% 10 ML SYRINGE IVP SCH (06:32)
[2016-11-03] MEDS: INSULIN ASPART 300 UNIT/3 ML PEN SUBQ SCH (08:17)
[2016-11-03] MEDS: POLYETHYLENE GLYCOL 3350 17 GM PACKET PO SCH (08:24)
[2016-11-03] MEDS: SULFAMETH/TRIMETH DS 800/160 MG TABLET PO SCH (08:25)
[2016-11-03] MEDS: POTASSIUM CHLORIDE 10 MEQ CAPSULE PO SCH (08:25)
[2016-11-03] MEDS: FUROSEMIDE 40 MG TABLET PO SCH (08:26)
[2016-11-03] MEDS: DOCUSATE SODIUM 250 MG CAPSULE PO SCH (08:26)
[2016-11-03] MEDS: CARVEDILOL 12.5 MG TABLET PO SCH (08:26)
[2016-11-03] MEDS: SENNA 8.6 MG TABLET PO SCH (08:27)
[2016-11-03] MEDS: FERROUS GLUCONATE 324 MG TABLET PO SCH (08:27)
[2016-11-03] MEDS: FAMOTIDINE 20 MG TABLET PO SCH (08:27)
[2016-11-03 08:34] VITALS: BP 165/91
--- NOTE | 2016-11-08 08:22 | DISCHARGE SUMMARY ---
DATE OF ADMISSION: 10/31/2016 DATE OF DISCHARGE: 11/03/2016 REASON FOR ADMISSION: Bilateral lower extremity chronic wounds with active infection. HISTORY OF PRESENT ILLNESS: This is an 89-year-old female who was seen by me as an outpatient for nonhealing traumatic wounds of the bilateral lower extremities. Her trauma occurred in August where she sustained lacerations to both of her legs. These were suture repaired in the emergency department. However, these wounds opened up and broke down. On my evaluation in the clinic she was noted to have a cellulitic component to the wounds. She was scheduled for debridement of the bilateral lower extremity wounds. Upon evaluation in the emergency department the wounds were noted to be much more deep and extensive once the necrotic tissue was debrided away. Additionally the patient was on Coumadin and despite holding her Coumadin preoperatively her INR remained elevated. For these reasons she required inpatient admission to monitor for postoperative bleeding in the setting of an elevated INR and additionally for IV antibiotic treatment of her extensive bilateral lower extremity wounds in the setting of actively infected traumatic wounds. Cultures were obtained during the operation. She was placed on IV antibiotics with improvement of the cellulitis in the ensuing days. On postoperative day #1 VAC dressings were placed as the drainage from the wounds was quite minimal. A wound consultation was obtained for this purpose. Preoperatively she was ambulating with a walker, however, her mobility was compromised following surgery due to pain and as well as due to the vac dressing. She was evaluated by PT and OT and it was determined that she would require higher level of care rather than being discharged to her home, as the patient was living independently. Eventually her cultures came back with sensitivities to oral antibiotics and she was transitioned to these. She was noted to have acute on chronic renal insufficiency during her hospitalization and did require some IV hydration. This stabilized in the ensuing days. The VAC was monitored for any signs of bleeding and none occurred. She was subsequently restarted on her Coumadin. Eventually she was stable for discharge to a [facility] facility. PHYSICAL EXAMINATION ON DISCHARGE: VITAL SIGNS: 36.9, blood pressure 155/66, heart rate 88, respiratory rate 18, O2 saturation 96% on room air. She is awake, alert, oriented x3 in no acute distress. She is of average build. CARDIOVASCULAR: Irregularly irregular. CHEST: Clear to auscultation bilaterally. ABDOMEN: Soft and nondistended. EXTREMITIES: +3 pitting edema on the left, +2 pitting edema on the right. The VAC dressings are in place bilaterally with good suction. Improved erythema on the bilateral lower extremities. Nonpalpable pedal pulses. The patient was discharged to a [facility] facility with a prescription for Bactrim to continue for a total of 2 weeks. She is to follow up with me in 1 week for evaluation of the wounds. Instructions on VAC dressing changes were provided for the [facility] facility and they should be performed 3 days per week. JOB #: [id number] EXT JOB #:[id number] MTDD
== END 2016-11-03 08:45 | disposition home health service (06) | DRG 571 ==
LOC: SDS 06:12 → MS 08:48 → OBSVTOIN 10-31 12:40 → MS 10-31 17:52
PROVIDERS: ADMIT Surgery; ATTEND Surgery
PROC: 0HBKXZZ Excision of Right Lower Leg Skin, External Approach (ICD-10-PCS; 2016-10-30)
PROC: 0KBS0ZZ Excision of Right Lower Leg Muscle, Open Approach (ICD-10-PCS; 2016-10-30)
PROC: 0KBT0ZZ Excision of Left Lower Leg Muscle, Open Approach (ICD-10-PCS; principal; 2016-10-30 07:30)
DX: L03.116 Cellulitis of left lower limb (principal); I13.0 Hypertensive heart and chronic kidney disease with heart failure and stage 1 through stage 4 chronic kidney disease, or unspecified chronic kidney disease; N17.9 Acute kidney failure, unspecified; L03.115 Cellulitis of right lower limb; S81.812S Laceration without foreign body, left lower leg, sequela; S81.811S Laceration without foreign body, right lower leg, sequela; B96.1 Klebsiella pneumoniae [K. pneumoniae] as the cause of diseases classified elsewhere; B96.89 Other specified bacterial agents as the cause of diseases classified elsewhere; W01.198S Fall on same level from slipping, tripping and stumbling with subsequent striking against other object, sequela; I50.9 Heart failure, unspecified; N18.9 Chronic kidney disease, unspecified; E11.22 Type 2 diabetes mellitus with diabetic chronic kidney disease; E11.40 Type 2 diabetes mellitus with diabetic neuropathy, unspecified; I48.91 Unspecified atrial fibrillation; E78.5 Hyperlipidemia, unspecified; G47.30 Sleep apnea, unspecified; D64.9 Anemia, unspecified; E89.0 Postprocedural hypothyroidism; Z95.1 Presence of aortocoronary bypass graft; Z79.84 Long term (current) use of oral hypoglycemic drugs; Z79.01 Long term (current) use of anticoagulants; Z79.82 Long term (current) use of aspirin; Z79.51 Long term (current) use of inhaled steroids; Z79.899 Other long term (current) drug therapy; Z95.0 Presence of cardiac pacemaker; Z87.891 Personal history of nicotine dependence
CPT/HCPCS: 11043; 11046; G0378; 36415; 80048; 83036; 85025; 85610; 85730; 86850; 86900; 86901; 87070; 87075; 87077; 87205

== ENCOUNTER 2016-11-03 20:22 | Outpatient (CLI) | payer MEDICARE, BC | END 2016-11-03 20:23 | disposition critical access hospital (66) | LOC: EMS 20:22 | PROVIDERS: ATTEND Surgery | DX: Z48.01 Encounter for change or removal of surgical wound dressing (principal) | CPT/HCPCS: A0425; A0429 ==

== ENCOUNTER 2016-11-03 20:40 | Emergency (ER) | payer MEDICARE, BC ==
[2016-11-03 20:43] VITALS: BP 155/66
--- NOTE | 2016-11-03 20:52 | ED Physician Documentation ---
History of Present Illness - Stated complaint Stated Complaint: WOUND DRESSING - Chief complaint Chief Complaint: Ext Problem - History obtained from History obtained from: Patient, EMS - History of Present Illness Timing: Today Pain level max: 0 Pain level now: 0 Improved by: nothing Worsened by: nothing - Additonal information Additional information: Patient is an 89-year-old female with bilateral lower extremity wounds. Recently surgically debrided. Was supposed to have a wound VAC placed today, but did not have a wound VAC available until saturday. Jed sent her back to the ED for a dressing change Review of Systems Constitutional: denies: Fever GI: denies: Vomiting PD PAST MEDICAL HISTORY - Past Medical History Past Medical History: Yes Cardiovascular: Congestive heart failure, Hypertension, High cholesterol, Coronary artery disease, Atrial fibrillation, Murmur, Other Respiratory: Sleep apnea, CPAP use Neuro: None Endocrine/Autoimmune: Type 2 diabetes, HyPOthyroidism GI: GI bleed, Colon polyps : None HEENT: None Psych: None Musculoskeletal: None Derm: None - Past Surgical History Past Surgical History: Yes General: Cholecystectomy, Colonoscopy /[employer]NEY: Mastectomy Cardiovascular: CABG HEENT: Cataracts, Other - Present Medications Home Medications: Ambulatory Orders Medication Instructions Recorded Confirmed Aspirin [Aspir 81] 81 mg PO SUTUTHSA@2100 03/11/13 10/30/16 Acetaminophen [Tylenol] 325 - 650 mg PO Q6HR PRN #0 tablet 11/02/16 Atorvastatin [Lipitor] 80 mg PO QPM tablet 11/02/16 Carvedilol [Coreg] 25 mg PO QPM tablet 11/02/16 Carvedilol [Coreg] 37.5 mg PO DAILY@0900 tablet 11/02/16 Docusate Sodium 250Mg Capsule 250 - 500 mg PO DAILY capsule 11/02/16 [Colace 250Mg Capsule] Famotidine [Pepcid] 20 mg PO DAILY tablet 11/02/16 Furosemide [Lasix] 80 mg PO BID tablet 11/02/16 HYDROcod/ACETAM 5/325 [[place] 5/325] 1 tab PO Q4HR PRN #0 tablet 11/02/16 Ibuprofen [Motrin] 400 mg PO Q4HR PRN #0 tablet 11/02/16 Insulin Aspart [NovoLOG] 2 - 10 unit SUBQ 11/02/16 0800,1200,1700,2100 pen Levothyroxine [Synthroid] 100 mcg PO QDAC tablet 11/02/16 Losartan [Cozaar] 25 mg PO QPM tablet 11/02/16 Polyethylene Glycol 3350 [Miralax] 17 gm PO DAILY packet 11/02/16 Potassium Chloride [Micro-K] 10 meq PO DAILY capsule 11/02/16 Senna [Senokot] 8.6 - 17.2 mg PO DAILY tablet 11/02/16 Warfarin [Coumadin] 2 mg PO SuMoTuThFr@2100 tablet 11/02/16 Warfarin [Coumadin] 4 mg PO WeSa@2100 tablet 11/02/16 - Allergies Allergies/Adverse Reactions: Allergies Allergy/AdvReac Type Severity Reaction Status Date / Time doxazosin Allergy Unknown Verified 11/03/16 20:43 levofloxacin [From Levaquin] Allergy Cramps Verified 11/03/16 20:43 quinidine Allergy Unknown Verified 11/03/16 20:43 codeine [Codeine] AdvReac Mild Nausea Verified 11/03/16 20:43 - Social History Does the pt smoke?: No Smoking Status: Never smoker Does the pt drink ETOH?: No Does the pt have substance abuse?: No - Immunizations Immunizations are current?: Yes PD ED PE NORMAL - Vitals Vital signs reviewed: Yes - General General: Alert and oriented X 3, No acute distress - Derm Derm: Warm and dry - Extremities Extremities: Other (B LE wounds with wound vac sponges in place.) - Neuro Neuro: Alert and oriented X 3 Results - Vitals Vitals: Vital Signs - 24 hr 11/03/16 20:41 Temperature 36.9 C Heart Rate 88 Respiratory 18 Rate Blood Pressure 155/66 H O2 Saturation 96 Oxygen O2 Source [With Activity] Room air O2 Source [Without Activity] Nasal cannula O2 Source Room air PD MEDICAL DECISION MAKING - ED course Complexity details: reviewed old records, considered differential, d/w patient, d/w campaign consultant ED course: Patient is an 89-year-old female who has bilateral lower extremity wounds. She was supposed to have a wound VAC delivered to her assisted-living facility, but it is not available until Saturday. I discussed the case with surgery on-call, Dr. Lucio, who recommends placing Mepitel on the wounds and then wrapping with 4 x 4's and bulky dressings. We will send the patient home with additional dressing supplies to change they become saturated. Patient counseled regarding signs and symptoms for which I believe and urgent re-evaluation would be necessary. Patient with good understanding of and agreement to plan and is comfortable going home at this time This document was made in part using voice recognition software. While efforts are made to proofread this document, sound alike and grammatical errors may occur. Departure - Departure Disposition: 01 Home, Self Care Clinical Impression: Dressing change or removal, surgical wound Condition: Good Instructions: ED Bandage Change Follow-Up: MARTITA MCCLAIN MD [Provider Admit Priv/Credential] - (as scheduled) Comments: The wound vac should arrive saturday. Return if you worsen. Discharge Date/Time: 11/03/16 20:56
== END 2016-11-03 20:56 | disposition home or self-care (01) ==
LOC: ED 20:40
DX: Z48.01 Encounter for change or removal of surgical wound dressing (principal); E11.9 Type 2 diabetes mellitus without complications; Z79.4 Long term (current) use of insulin; I11.0 Hypertensive heart disease with heart failure; I50.9 Heart failure, unspecified; I48.91 Unspecified atrial fibrillation; Z79.01 Long term (current) use of anticoagulants; Z79.82 Long term (current) use of aspirin; E03.9 Hypothyroidism, unspecified
CPT/HCPCS: 99283

== ENCOUNTER 2016-11-03 21:00 | Outpatient (CLI) | payer MEDICARE, BC | END 2016-11-03 21:01 | disposition home or self-care (01) | LOC: EMS 21:00 | PROVIDERS: ATTEND Surgery | DX: Z48.01 Encounter for change or removal of surgical wound dressing (principal) | CPT/HCPCS: A0425; A0428 ==